=== PATIENT | male | born 1935 | race Caucasian/White ===

== ENCOUNTER → 2017-11-02 08:13 | Outpatient (CLI) | payer MEDICARE, SELFPAY ==
--- NOTE | 2017-11-02 08:19 | BD_ITS ---
STUDY: DUAL ENERGY X-RAY ABSORPTIOMETRY / DXA REASON FOR EXAM: Male, 81 years old. Loss of height. TECHNIQUE: Bone Mineral Density (BMD) measurements of lumbar spine and bilateral hips were obtained. COMPARISON: None. FINDINGS: Lumbar Spine (L1-L4): g/cm2 (1.172) / T-score (-0.6) / Z-score (0.1) Findings are suggestive of normal bone density with a low fracture risk. Left Femur Total: g/cm2 (0.878) / T-score (-1.5) / Z-score (-0.4) Left Femoral Neck: g/cm2 (0.708) / T-score (-2.8) / Z-score (-1.2) Right Femur Total: g/cm2 (0.908) / T-score (-1.3) / Z-score (-0.2) Right Femoral Neck: g/cm2 (0.745) / T-score (-2.5) / Z-score (-1.0) BD/Dexa Bone Density Study IMPRESSION: The patient is considered osteoporotic as outlined below according to World John Organization (WHO) criteria with a high fracture risk. Reference Information: The T-score is the number of standard deviations above or below the standard which is normal for young adults at their peak bone mineral density. The World Health Organization (WHO) interprets the T-scores as follows: Above -1 Normal bone density Between -1 and -2.5 Osteopenia Equal to / or below -2.5 Osteoporosis As a practical clinical guideline, osteopenia may be graded as follows: Mild -1 through -1.5 Moderate -1.6 through -2.0 Severe -2.1 through -2.4 The Z-score is the number of standard deviations above or below age-matched controls. A Z-score of less than -1.5 would be considered abnormal. References: 1. NIH Osteoporosis and Related Bone Diseases http://www.osteo.org 2. International Society for Clinical Densitometry http://www.iscd.org 3. National Osteoporosis Foundation http://www.nof.org Electronically Signed: Cornelius Evans MD at 12:46 EDT Tel [phone], Service support ,
== END ==
PROVIDERS: Family Provider Family Medicine; PCP Family Medicine; Visit Provider Family Medicine
DX: R93.7 Abnormal findings on diagnostic imaging of other parts of musculoskeletal system (principal); M81.0 Age-related osteoporosis without current pathological fracture
CPT/HCPCS: 77080

== ENCOUNTER 2017-11-21 10:26 | Day surgery (SDC) | payer MEDICARE, SELFPAY ==
[2017-11-21] VITALS (10 sets, daily range): BP systolic 104–160; BP diastolic 57–104; PULSE 57–68; RESP 16–18; TEMP 36.1–36.4; O2SAT 92–99; BMI 29.5
--- NOTE | 2017-11-21 09:10 | PCM.OPRPT ---
Problem List (1) Screening for intestinal cancer Status: Acute Report of Operation Date of Procedure: 11/21/17 Pre-Operative Diagnosis: Screening for intestinal cancer Post-Operative Diagnosis: Small sessile polyp of the ascending colon. Sigmoid diverticulosis Surgery/Procedure Performed:: Colonoscopy with cold forcep biopsy Description of Surgical Findings:: Timeout and informed consent was obtained. 81-year-old gent was taken to the endoscopy suite. He was placed in a left lateral decubitus position. Throughout the procedure he received total 100 mg Demerol and 4 mg of Versed as intravenous sedation. Digital rectal exam demonstrated mild grade 1 to grade 2 internal and external hemorrhoids. 2+ with prostate. Flexible colonoscope was in the rectum advanced with tortuous sigmoid colon. The scope was advanced through the transverse colon. Transabdominal pressure and placing the patient supine and then back and left loud skin position was required to get the scope to go to the cecum. The cecum ileocecal valve however was achieved. Bowel prep was good there was liquid stool that could be aspirated. A diminutive sessile polyp of the mid ascending colon was identified. This was approximately 5 mm. Cold forceps were used to sample and eradicate this lesion. Hemostasis was intact. The scope was further withdrawn to the ascending transverse descending and sigmoid colon. Sigmoid diverticulosis identified. No mass lesions. The scope was withdrawn to the rectum retroflex the anorectal verge inspected. Hemorrhoidal changes noted. No active bleeding. Excess fluid and air was aspirated free the procedure was completed with the patient tolerating it well. Impression Diminutive sessile polyp of the ascending colon with pathology pending. Sigmoid diverticulosis. The patient has not had a previous colonoscopy. Next colonoscopy based upon pathology anticipating [address] SALLY Hanna Scope was inserted at 0846. The cecum was reached at 0858. The procedure was completed at 0904. Mitchel Casarez M.D., F.A.C.S. Type of Anesthesia:: IV Sedation
--- NOTE | 2017-11-21 09:45 | COLBX_PTH ---
PATIENT: ALLISON SULTANA LOC: [facility] U#:[id number] AGE/SX: 81/M ROOM: RE11/21/[address]: Dr. Mitchel Casarez MD : [id number] BED: DIS: 11/21/2017 SPEC #: [id number] RECD: 11/21/17 10:34 STATUS: ILAN JORJE #: [id number] MARTÍNEZ: 11/21/17 09:[address]: Mitchel Casarez DEPT: SURGICAL PATHOLOGY RECD BY: Samy Brewer ENTERED: 11/21/17 12:08 SP TYPE: COLON BX OT DR: Dr. Tariq Hanna MD Tissues: Ascending colon Procedures: Surgery Specimen Level IV HEADER OPERATION: Colonoscopy PRE-OP DIAGNOSIS: Screening TISSUE SUBMITTED: Biopsy polyp ascending colon MICROSCOPIC DIAGNOSIS Polyp ascending colon, biopsy: Fragments of colonic mucosa, no pathologic diagnosis. SJ:jerry 11/22/17 MICROSCOPIC DESCRIPTION Slides are reviewed. GROSS DESCRIPTION Received in fixative is one container labeled with the patient's name and designated biopsy polyp ascending colon. The specimen consists of multiple irregular fragments of light chowdary soft tissue that in aggregate measure 1 x 0.3 x 0.1 cm. The specimen is totally submitted in one cassette. / SJ:jerry 11/21/17 TC:4 CPT: 03236
== END 2017-11-21 10:27 | disposition home or self-care (01) ==
LOC: EN 10:27
PROVIDERS: Family Provider Family Medicine; PCP Family Medicine; Visit Provider Surgery
PROC: 0DJD8ZZ Inspection of Lower Intestinal Tract, Via Natural or Artificial Opening Endoscopic (ICD-10-PCS; CPT 45378; principal; 2017-11-21 09:40)
DX: Z12.11 Encounter for screening for malignant neoplasm of colon (principal); K63.5 Polyp of colon; K57.30 Diverticulosis of large intestine without perforation or abscess without bleeding; K64.4 Residual hemorrhoidal skin tags; K64.8 Other hemorrhoids; R10.33 Periumbilical pain; K43.2 Incisional hernia without obstruction or gangrene; Z87.442 Personal history of urinary calculi; Z87.891 Personal history of nicotine dependence; Z90.49 Acquired absence of other specified parts of digestive tract
CPT/HCPCS: 45380; 88305; 99152; 99153

== ENCOUNTER 2018-02-01 16:44 | Observation (INO) | payer MEDICARE, SELFPAY ==
--- NOTE | 2018-01-26 09:48 | EKG12_ITS ---
Test Reason : PRE OP Blood Pressure : / mmHG Vent. Rate : 051 BPM Atrial Rate : 051 BPM P-R Int : 192 ms QRS Dur : 084 ms QT Int : 484 ms P-R-T Axes : 029 -04 005 degrees QTc Int : 446 ms Sinus bradycardia Moderate voltage criteria for LVH, may be normal variant Borderline ECG Confirmed by ROWDY FIERRO, FREDI ([id number]), food editor MARY ADAME ([id number]) on 01/29/2018 2:22:12 PM Referred By: Mitchel Casarez Confirmed By:FREDI RENO MD
[2018-01-26 10:36] LABS: Hematocrit 45.4 % (40-54); Hemoglobin 15.2 g/dl (13.0-16.5); Mean Corp Hgb Conc 33.5 g/gl (32-36); Mean Corpuscular Hgb 33.5 pg (27.0-32.0); Mean Platelet Vol. 10.1 fl (6.2-12.0); Platelet Count 178 K/mm3 (150-450); RBC Distribution Width CV 12.2 % (11.6-14.6); RBC Distribution Width SD 44.5 fl (35.1-43.9); Red Blood Count 4.54 M/mm3 (4.6-6.2); White Blood Count 6.1 K/mm3 (4.4-11.0)
[2018-01-26 10:37] LABS: Scan Indicated on CBC? Y/N NO
[2018-01-26 11:22] LABS: Anion Gap 6 (5-15); BUN 19 mg/dL (7-18); BUN/Creat Ratio 16.7 RATIO (10-20); Calcium,Total 8.4 mg/dL (8.5-10.1); Chloride 108 mmol/L (98-107); Creatinine, Serum 1.14 mg/dL (0.70-1.30); EST Glomerular Filtration Rate 66 mL/min (>60); Est Glom Filt Rate - Afr Amer 80 mL/min (>60); Glucose 90 mg/dL (74-106); Potassium 4.2 mmol/L (3.5-5.1); Sodium Level 140 mmol/L (136-145)
[2018-02-01] VITALS (9 sets, daily range): BP systolic 146–168; BP diastolic 78–96; PULSE 50–71; RESP 16–18; TEMP 36.2–36.6; O2SAT 94–100; BMI 29.5
[2018-02-01] MEDS: Cefazolin 2 GM in 0.9% Normal Saline 100 ML IV (15:14)
--- NOTE | 2018-02-01 15:18 | DCINST_ITS ---
<Mitchel Casarez - Last Filed: 02/02/18 06:05> Discharge Diet: Light diet - advance as tolerated - if you have questions about your diet instructions, please talk to you doctor. Discharge Activity: May Not Drive - for 1 week or while taking narcotic pain medicine. May shower in (days): 1 Lifting Restrictions: 10 pounds Call your doctor if your incision/area has: Continuous Slow Oozing, Sudden Increased Bleeding, Increased Pain/ Swelling, Increased Redness, Foul Smelling Discharge Call your doctor if you observe: Fever of 101 or Higher Suture Line Care: Avoid Pulling/Pushing, Avoid Pinching/Bending Additional Dressing/Incision Instructions:: Change or remove dressing in 4 days. Leave steri-strips in place for 1 week. Allergies/Adverse Reactions: Allergies latex Adverse Reaction (Mild, Verified 02/01/18 19:46) Other stays he is okay if its left on for very long Medications to take at Discharge Amlodipine [Norvasc] 5 mg PO DAILY #90 tablet 02/04/18 The following prescriptions were given: Amlodipine [Norvasc] 5 mg PO DAILY #90 tablet Primary Care Physician: Tariq Hanna MD [Primary Care Provider] - Test Results: Test results from this visit will be discussed in further detail at your follow- up appointment, if applicable. Please Follow Up With: Mitchel Casarez MD - [phone] When: Call to make an appointment to be seen in about 2 weeks. <Dayanna Ramos - Last Filed: 02/04/18 08:43> Test Results: Test results from this visit will be discussed in further detail at your follow- up appointment, if applicable. Proposed Discharge Date: 02/04/18
[2018-02-01] MEDS: BUPIVACAINE LIPOSOME/PF 20 ML VIAL OPERA.SITE (16:28)
--- NOTE | 2018-02-01 16:43 | OP.PCM_ITS ---
Problem List (1) Recurrent ventral incisional hernia Status: Acute Report of Operation Date of Procedure: 02/01/18 Pre-Operative Diagnosis: Recurrent ventral incisional hernia Post-Operative Diagnosis: Recurrent ventral incisional hernias x2 Surgery/Procedure Performed:: Open with conversion to laparoscopic ventral incisional herniorrhaphies Description of Surgical Findings:: Timeout and informed consent was obtained. 82-year-old gent was taken the operating placement table underwent general tracheal intubation anesthesia. Ancef 2 g given intravenous preoperatively. The abdomen was sterilely prepped draped. Ioban draping was used as well. A transverse incision made superior to the umbilicus at the site of the anticipated defect. Sharp dissection carried down through subcutaneous. At that point I dissected inferiorly to the umbilical site at the recurrent hernia there. I gained access through that sac circumferentially dissected free and then it became apparent that was omentum adherent to the anterior abdominal wall. Upon [place] patient there was a separate defect that was superiorly placed to my incision. So I then placed a balloon Lala catheter. Insufflated the abdomen with CO2 to a pressure of 10 mmHg pressure. Identified adhesions of omentum to the anterior abdominal wall. There was a recurrent ventral incisional hernia at the umbilicus. There was a additional ventral incisional hernia approximately 6 cm cephalad to that hernia. I was able to then use a hot scissors or hook cautery as well as Hem-o-renetta clips for hemostasis and I transected the greater omentum off the anterior abdominal wall. I then selected ventral light ST mesh. Reference #[id number]. Lot number [employer] Q's [id number]. Expiry date 09/19/2019. It was approximately 25 cm by I put 4 corner sutures of 2-0 Prolene. Curled the mesh placed it within the abdomen. At this point I had already placed 2 5 mm ports in the left midabdomen and to family reports in the right mid abdomen. I unfurled the mesh. I used a grainy needle and 11 blade to make stab incisions I parachuted the mesh up to the abdominal wall. I then used secure strap at the periphery at 2 cm intervals. Secure strap device lot number [id number]. Expiry date July 2019. Soup to similar devices I then further secured the midportion of the mesh to inhibit seroma formation. Excellent positioning and securement was achieved. I then wetted the mesh with saline. I sure that the greater omentum was overlying the small bowel. There was excellent positioning coverage of the mesh excellent coverage of the defect area. Hemostasis was intact. Then under laparoscopic visualization I performed a tap block bilaterally. Under left scopic visualization I took Exparel 20 cc diluted with 60 cc of saline and performed a tap block bilaterally using 10 cc syringe and 22-gauge needle. The bulb was distention of the oblique muscles nicely identified. Having now achieved this I removed the ports. Allow the abdomen to deflate of the CO2. Skin edges approximated with interrupted and running septic or 4-0 Monocryl. Steri-Strip Telfa OpSite dressings applied. A pressure dressing was applied to the mid. All of the 30 cc of 0.5% Marcaine was used as well. Sponge instrument and needle counts were reported the surgeon be correct. Blood loss was minimal. The patient was taken to the recovery room in condition without apparent complication Mitchel Casarez M.D., F.A.C.S. Type of Anesthesia:: General Anesthesiologist: Rupesh Richardson
[2018-02-01] MEDS: Bupivacaine Mpf 0.5% 30 ML VIAL (16:47)
[2018-02-01] MEDS: Morphine 2 MG/ML Syringe IV ×3 (18:42→22:45)
[2018-02-01] MEDS: Ondansetron 4 MG/2 ML Vial IV (20:29)
[2018-02-01] MEDS: 0.9% NaCl Peripheral Flush Adult/Peds IV (22:44)
[2018-02-01] MEDS: Acetaminophen 325 MG Tablet 650 MG PO (22:44)
--- NOTE | 2018-02-01 22:57 | NURSING ---
Pt up to chair with 2 assist. Legs are elevated with scd's on. K-pad applied to abdomen. Pt using incentive spirometer. Medicated for pain.
[2018-02-02 01:57] VITALS: BP 160/99; PULSE 57; RESP 16; TEMP 36.5; O2SAT 99
[2018-02-02] MEDS: 0.9% NaCl Peripheral Flush Adult/Peds IV ×4 (02:12→14:40)
[2018-02-02] MEDS: Morphine 2 MG/ML Syringe IV ×4 (02:12→21:39)
[2018-02-02] MEDS: Lactated Ringers 1,000 ML 50 ML IV (02:16)
--- NOTE | 2018-02-02 02:18 | NURSING ---
pt returned to bed with 2 staff assist
[2018-02-02] MEDS: Ondansetron 4 MG/2 ML Vial IV (05:00)
[2018-02-02] MEDS: Enoxaparin 40 MG/0.4 ML Syringe SC (05:12)
--- NOTE | 2018-02-02 06:01 | PCM.PN.SRG ---
Subjective: Pt notes quite painful when meds wear off--this is despite the KIERA block performed Has been out of bed in chair No nausea no flatus - Physical Exam General: Alert, Oriented x3, Cooperative, No apparent distress Lungs: Clear to auscultation Cardiovascular: Regular rate, Regular Rhythm Abdomen: Soft, Hypoactive Bowel Sounds, Distended Vital Signs Temp Pulse Resp BP Pulse Ox 97.7 F L 57 L 16 160/99 H 99 02/02/18 01:57 02/02/18 01:57 02/02/18 01:57 02/02/18 01:57 02/02/18 01:57 Oxygen Flow Rate (L/min) 1.5 Oxygen Delivery Method Nasal Cannula Weight: 200 lb 6.403 oz Body Mass Index (BMI) 29.5 Intake and Output for Last 24 Hours 01/31/18 02/01/18 02/02/18 23:59 23:59 23:59 Intake Total 1400 / 1400 530 / 530 Output Total 600 / 600 Balance 1400 / 1400 -70 / -70 Medical Necessity - Tobacco Use Smoking Status: Never smoker Assessment/Plan All Active Problems (Last Reviewed 01/11/18 @ 09:04 by Kaya Sandoval) Screening for intestinal cancer (Acute) Recurrent ventral incisional hernia (Acute) Continue to mobilize pt Start clears
[2018-02-02] MEDS: Ketorolac 15 MG/ML Vial IV (06:19)
[2018-02-02] MEDS: Polyethylene Glycol 3350 17 GM PACKET 34 GM PO (06:19)
[2018-02-02 06:34] VITALS: O2SAT 94
[2018-02-02 07:23] VITALS: BP 152/84; PULSE 61
[2018-02-02 08:34] VITALS: BP 147/84; PULSE 56; RESP 16; TEMP 36.3; O2SAT 96
[2018-02-02] MEDS: Acetaminophen 325 MG Tablet 650 MG PO (08:41)
[2018-02-02] MEDS: proMETHazine 25 MG Suppos. RECTAL (09:32)
[2018-02-02] MEDS: Morphine 4 MG/ML Syringe IV ×2 (10:50→14:40)
[2018-02-02] MEDS: LORazepam 0.5 MG Tablet PO (12:07)
--- NOTE | 2018-02-02 13:37 | CASEMGMT ---
RN CM Face to Face with patient for initial transition planning/care coordination assessment. RN CM introduced self and role at [facility]. Patient sitting in chair, alert and oriented, daughters at bedside. Patient willing to participate in assessment and is able to answer all questions appropriately. Care providers, pharmacy, and demographics verified. Patient lives alone in 1 story home. Patient is independent at home and drives self. Patient has daughter that will be staying with patient for a few days. Patient wishes to discharge home, denies need for home health at this time. Patient states he has no further needs or concerns at this time. CM to follow for discharge planning needs that may arise. Disposition Plan: Patient to discharge home with family support and follow-up plans in place. Sara LAND, RN, CM
[2018-02-02 14:38] VITALS: BP 129/74; PULSE 66; RESP 16; TEMP 36.6; O2SAT 98
--- NOTE | 2018-02-02 15:32 | NURSING ---
Pt. ambulating in hallway with SBA and tolerating well.
--- NOTE | 2018-02-02 16:45 | PCM.PN.BLA ---
Progress Note No flatus but otherwise doing ok Sitting in chair Nausea has resolved Ongoing care
[2018-02-02] MEDS: Bisacodyl 10 MG Suppository RECTAL (17:32)
[2018-02-02 21:26] VITALS: BP 186/90; PULSE 68; RESP 16; TEMP 37.3; O2SAT 94
[2018-02-03] VITALS (10 sets, daily range): BP systolic 151–184; BP diastolic 78–110; PULSE 60–81; RESP 16; TEMP 36.6–36.9; O2SAT 95–97
[2018-02-03] MEDS: Morphine 2 MG/ML Syringe IV ×2 (02:58→05:24)
[2018-02-03] MEDS: hydrALAZINE 20 MG/ML Vial 5 MG IV (04:13)
[2018-02-03] MEDS: Enoxaparin 40 MG/0.4 ML Syringe SC (06:52)
--- NOTE | 2018-02-03 07:13 | PCM.PN.SRG ---
Subjective: Pt c/o pain out of proportion to anticipated for procedure HTN early a.m. requiring IV hydralazine Pt having some flatus but wanting the gas cramps to be treated with IV morphine No nausea - Physical Exam General: Alert, Oriented x3, - - moves very little and shows painful response Lungs: - - dimininshed in bases Abdomen: Bowel Sounds Present, Soft, - - tape burn right mid abdomen Extraordinarily tender to minimal light touch to abdomen Dressings otherwise very clean and dry Vital Signs Temp Pulse Resp BP Pulse Ox 98.4 F 81 16 152/86 H 97 02/03/18 02:45 02/03/18 04:13 02/03/18 02:45 02/03/18 06:24 02/03/18 02:45 Oxygen Flow Rate (L/min) 2 Oxygen Delivery Method Nasal Cannula Weight: 200 lb 6.403 oz Body Mass Index (BMI) 29.5 Intake and Output for Last 24 Hours 02/01/18 02/02/18 02/03/18 23:59 23:59 23:59 Intake Total 1400 / 1400 1788 / 1788 398 / 398 Output Total 1025 / 1025 600 / 600 Balance 1400 / 1400 763 / 763 -202 / -202 Medical Necessity - Tobacco Use Smoking Status: Never smoker Assessment/Plan All Active Problems (Last Reviewed 01/11/18 @ 09:04 by Kaya Sandoval) Screening for intestinal cancer (Acute) Recurrent ventral incisional hernia (Acute) Pt took only one dose of ativan yesterday as it was declined by family as pt not anxious He is clearly having abdominal wall pain from the repair. The KIERA block does not appear to have provided any benefit In an attempt to move away from morphine I will have a dose of IV toradol and IV ativan (muscle pain/spasm) given Will try 24 hours of a routine ibuprofen dosing Pt vigorously encouraged to mobilize and work his IS Will advance to fulls Will consult hospitalist to assist with chronic and acute HTN
[2018-02-03] MEDS: Ketorolac 15 MG/ML Vial IV (08:14)
[2018-02-03] MEDS: LORazepam 2 MG/ML Syringe 0.5 MG IV (08:14)
[2018-02-03] MEDS: Lactated Ringers 1,000 ML 30 ML IV (08:15)
[2018-02-03] MEDS: Pantoprazole Sodium 20 MG Tablet PO (08:32)
--- NOTE | 2018-02-03 10:02 | PCM.PN.HOSP ---
Subjective: Patient is an 82-year-old male who was admitted on account of recurrent ventral incisional hernia who underwent Open with conversion to laparoscopic ventral incisional herniorrhaphies 02/01/[address] Mitchel Casarez. Hospitalist service was consulted on account of patient having markedly elevated systolic blood pressure of greater than 180. Objective: GENERAL: cooperative HEENT: Atraumatic; moist oral mucosa EYES; Anicteric, Normal Conjunctiva NECK; supple, normal thyroid, no distended JVD. RESPIRATORY: Diminished to auscultation bilaterally, CARDIOVASCULAR: Regular S1 S2, no audible murmurs GI: soft, non-tender, normoactive bowel sounds, : No Renal angle tenderness; EXTREMITIES: No edema, no clubbing, no cyanosis. MUSCULOSKELETAL: No Joint Tenderness; no muscle waisting NEURO: Awake; no lateralizing signs. SKIN: No Rash PSYCH; Normal affect Vitals/I&O's: Vital Signs Temp Pulse Resp BP Pulse Ox 98.2 F 73 16 163/96 H 95 02/03/18 08:16 02/03/18 08:16 02/03/18 08:16 02/03/18 08:16 02/03/18 08:16 Oxygen Flow Rate (L/min) 2 Oxygen Delivery Method Room Air Weight: 90.9 kg Body Mass Index (BMI) 29.5 Intake and Output for Last 24 Hours 02/01/18 02/02/18 02/03/18 23:59 23:59 23:59 Intake Total 1400 / 1400 1788 / 1788 798 / 798 Output Total 1025 / 1025 600 / 600 Balance 1400 / 1400 763 / 763 198 / 198 Current Medications Acetaminophen (Tylenol) 650 mg PO Q6H PRN PRN PRN Reason: pain Last Admin: 02/02/18 08:41 Dose: 650 mg Hydrocodone Bitart/Acetaminophen (Steward 5mg-325mg) 1 - 2 tablet PO Q4H PRN PRN PRN Reason: PAIN Enoxaparin Sodium (Lovenox) 40 mg SC DAILY@0600 [facility] Last Admin: 02/03/18 06:52 Dose: 40 mg Lactated Ringer's () 1,000 mls @ 30 mls/hr IV .[id number] [facility] Last Admin: 02/03/18 08:15 Dose: 30 mls/hr Ibuprofen (Motrin) 400 mg PO Q6 [facility] Stop: 02/04/18 06:01 Lorazepam (Ativan) 0.5 mg PO Q8H PRN PRN PRN Reason: ANXIETY Last Admin: 02/02/18 12:07 Dose: 0.5 mg Morphine Sulfate () 2 - 4 mg IV Q1H PRN PRN PRN Reason: PAIN Last Admin: 02/03/18 05:24 Dose: 2 mg Morphine Sulfate () 2 - 4 mg IV Q1H PRN PRN PRN Reason: PAIN Last Admin: 02/02/18 14:40 Dose: 4 mg Neomycin/Polymyxin/Bacitracin (Neosporin) 1 applic TOPICAL BID [facility]; Protocol Ondansetron HCl (Zofran) 4 mg IV Q8H PRN PRN PRN Reason: Nausea Last Admin: 02/02/18 05:00 Dose: 4 mg Pantoprazole Sodium (Protonix) 20 mg PO DAILY [facility] Last Admin: 02/03/18 08:32 Dose: 20 mg Promethazine HCl (Phenergan Suppository) 25 mg RECTAL Q4H PRN PRN PRN Reason: NAUSEA/VOMITING Last Admin: 02/02/18 09:32 Dose: 25 mg Sodium Chloride () 5 - 30 ml IV UD PRN PRN Reason: SALINE FLUSH Last Admin: 02/02/18 14:40 Dose: 10 ml Medical Necessity - Tobacco Use Smoking Status: Never smoker Assessment/Plan All Active Problems (Last Reviewed 01/11/18 @ 09:04 by Kaya Sandoval) Screening for intestinal cancer (Acute) Recurrent ventral incisional hernia (Acute) Patient is an 82-year-old male who was admitted on account of recurrent ventral incisional hernia who underwent Open with conversion to laparoscopic ventral incisional herniorrhaphies 02/01/[address] Mitchel Casarez. Hospitalist service was consulted on account of patient having markedly elevated systolic blood pressure of greater than 180. 1. Acute hypertensive crisis: This was possibly prepped stated by patient having significant postoperative pain patient was started on as needed hydralazine as well as p.o. scheduled amlodipine 2. Status post to laparoscopic ventral incisional herniorrhaphies 02/01/[address] Mitchel Casarez on account of recurrent ventral incisional hernia postoperative management deferred to Dr. Mitchel Casarez 3. History of renal calculi 4. Previous history of tobacco use 5. DVT prophylaxis SC Lovenox Active Medications Acetaminophen (Tylenol) 650 mg PO Q6H PRN PRN PRN Reason: pain Last Admin: 02/02/18 08:41 Dose: 650 mg Hydrocodone Bitart/Acetaminophen (Steward 5mg-325mg) 1 - 2 tablet PO Q4H PRN PRN PRN Reason: PAIN Enoxaparin Sodium (Lovenox) 40 mg SC DAILY@0600 [facility] Last Admin: 02/03/18 06:52 Dose: 40 mg Lactated Ringer's () 1,000 mls @ 30 mls/hr IV .[id number] [facility] Last Admin: 02/03/18 08:15 Dose: 30 mls/hr Ibuprofen (Motrin) 400 mg PO Q6 [facility] Stop: 02/04/18 06:01 Lorazepam (Ativan) 0.5 mg PO Q8H PRN PRN PRN Reason: ANXIETY Last Admin: 02/02/18 12:07 Dose: 0.5 mg Morphine Sulfate () 2 - 4 mg IV Q1H PRN PRN PRN Reason: PAIN Last Admin: 02/03/18 05:24 Dose: 2 mg Morphine Sulfate () 2 - 4 mg IV Q1H PRN PRN PRN Reason: PAIN Last Admin: 02/02/18 14:40 Dose: 4 mg Neomycin/Polymyxin/Bacitracin (Neosporin) 1 applic TOPICAL BID [facility]; Protocol Ondansetron HCl (Zofran) 4 mg IV Q8H PRN PRN PRN Reason: Nausea Last Admin: 02/02/18 05:00 Dose: 4 mg Pantoprazole Sodium (Protonix) 20 mg PO DAILY [facility] Last Admin: 02/03/18 08:32 Dose: 20 mg Promethazine HCl (Phenergan Suppository) 25 mg RECTAL Q4H PRN PRN PRN Reason: NAUSEA/VOMITING Last Admin: 02/02/18 09:32 Dose: 25 mg Sodium Chloride () 5 - 30 ml IV UD PRN PRN Reason: SALINE FLUSH Last Admin: 02/02/18 14:40 Dose: 10 ml Code Visit Inpatient E&M: [id number] [place] [id number]
[2018-02-03 10:14] LABS: Hematocrit 42.2 % (40-54); Hemoglobin 13.8 g/dl (13.0-16.5); Mean Corp Hgb Conc 32.7 g/gl (32-36); Mean Corpuscular Hgb 32.9 pg (27.0-32.0); Mean Corpuscular Volume 100.7 fL (80-94); Mean Platelet Vol. 9.9 fl (6.2-12.0); Platelet Count 146 K/mm3 (150-450); RBC Distribution Width CV 12.3 % (11.6-14.6); RBC Distribution Width SD 45.4 fl (35.1-43.9); Red Blood Count 4.19 M/mm3 (4.6-6.2); White Blood Count 8.1 K/mm3 (4.4-11.0)
[2018-02-03 10:16] LABS: Scan Indicated on CBC? Y/N NO
[2018-02-03 10:38] LABS: Anion Gap 4 (5-15); BUN 20 mg/dL (7-18); BUN/Creat Ratio 14.8 RATIO (10-20); Calcium,Total 8.2 mg/dL (8.5-10.1); Chloride 106 mmol/L (98-107); Creatinine, Serum 1.35 mg/dL (0.70-1.30); EST Glomerular Filtration Rate 54 mL/min (>60); Est Glom Filt Rate - Afr Amer 65 mL/min (>60); Estimated Creatinine Clearance 43.64 ml/min; Glucose 101 mg/dL (74-106); Magnesium 1.9 mg/dL (1.6-2.6); Potassium 4.2 mmol/L (3.5-5.1); Sodium Level 138 mmol/L (136-145)
[2018-02-03] MEDS: Ibuprofen 400 MG Tablet PO ×3 (11:05→23:35)
[2018-02-03] MEDS: HYDROcodone Bitartrate/Apap 5/325 Tablet PO ×3 (11:05→20:16)
[2018-02-03] MEDS: amLODIPine 5 MG Tablet PO (11:06)
[2018-02-03] MEDS: Neomycin/Bacitracin/Polymyxin Ointment 1 APPLIC TOPICAL ×2 (11:07→22:51)
[2018-02-03] MEDS: hydrALAZINE 20 MG/ML Vial 10 MG IV (23:06)
[2018-02-04 01:42] VITALS: BP 136/73; PULSE 69; RESP 16; TEMP 36.6; O2SAT 92
[2018-02-04] MEDS: Ibuprofen 400 MG Tablet PO (05:12)
[2018-02-04] MEDS: Enoxaparin 40 MG/0.4 ML Syringe SC (05:12)
[2018-02-04 05:46] LABS: Hematocrit 40.3 % (40-54); Hemoglobin 13.5 g/dl (13.0-16.5); Mean Corp Hgb Conc 33.5 g/gl (32-36); Mean Corpuscular Hgb 33.8 pg (27.0-32.0); Mean Corpuscular Volume 100.8 fL (80-94); Platelet Count 152 K/mm3 (150-450); RBC Distribution Width CV 11.9 % (11.6-14.6); RBC Distribution Width SD 43.1 fl (35.1-43.9); White Blood Count 6.5 K/mm3 (4.4-11.0)
[2018-02-04 06:06] LABS: Anion Gap 6 (5-15); BUN 17 mg/dL (7-18); BUN/Creat Ratio 15.2 RATIO (10-20); Calcium,Total 8.3 mg/dL (8.5-10.1); Chloride 107 mmol/L (98-107); Creatinine, Serum 1.12 mg/dL (0.70-1.30); EST Glomerular Filtration Rate 67 mL/min (>60); Est Glom Filt Rate - Afr Amer 81 mL/min (>60); Glucose 98 mg/dL (74-106); Sodium Level 141 mmol/L (136-145)
[2018-02-04 06:08] LABS: Scan Indicated on CBC? Y/N NO
[2018-02-04 07:38] VITALS: BP 145/81; PULSE 65; RESP 16; TEMP 36.7; O2SAT 95
--- NOTE | 2018-02-04 07:52 | PN_ITS ---
Subjective: Pt seen blood pressure control improving with initiation of amlodipine. Objective: GENERAL: cooperative HEENT: Atraumatic; moist oral mucosa EYES; Anicteric, Normal Conjunctiva NECK; supple, normal thyroid, no distended JVD. RESPIRATORY: Diminished to auscultation bilaterally, CARDIOVASCULAR: Regular S1 S2, no audible murmurs GI: soft, non-tender, normoactive bowel sounds, : No Renal angle tenderness; EXTREMITIES: No edema, no clubbing, no cyanosis. MUSCULOSKELETAL: No Joint Tenderness; no muscle waisting NEURO: Awake; no lateralizing signs. SKIN: No Rash PSYCH; Normal affect Vitals/I&O's: Vital Signs Temp Pulse Resp BP Pulse Ox 98.1 F 65 16 145/81 H 95 02/04/18 07:38 02/04/18 07:38 02/04/18 07:38 02/04/18 07:38 02/04/18 07:38 Oxygen Flow Rate (L/min) 2 Oxygen Delivery Method Room Air Weight: 90.9 kg Body Mass Index (BMI) 29.5 Intake and Output for Last 24 Hours 02/02/18 02/03/18 02/04/18 23:59 23:59 23:59 Intake Total 1788 / 1788 2654 / 2654 481 / 481 Output Total 1025 / 1025 600 / 600 Balance 763 / 763 2054 / 2054 481 / 481 Laboratory Results 02/03/18 10:06: WBC 8.1, RBC 4.19 L, Hgb 13.8, Hct 42.2, MCV 100.7 H, MCH 32.9 H , MCHC 32.7, RDW 12.3, RDW Differential 45.4 H, Plt Count 146 L, MPV 9.9 02/03/18 10:06: Sodium 138, Potassium 4.2, Chloride 106, Carbon Dioxide 28.0, Anion Gap 4 L, BUN 20 H, Creatinine 1.35 H, Estim Creat Clear Calc 43.64, Est GFR (MDRD) Af Amer 65, Est GFR (MDRD) Non-Af 54 L, BUN/Creatinine Ratio 14.8, Glucose 101, Calcium 8.2 L, Magnesium 1.9 02/04/18 05:35: WBC 6.5, RBC 4.00 L, Hgb 13.5, Hct 40.3, MCV 100.8 H, MCH 33.8 H , MCHC 33.5, RDW 11.9, RDW Differential 43.1, Plt Count 152, MPV 10.0 02/04/18 05:35: Sodium 141, Potassium 4.0, Chloride 107, Carbon Dioxide 28.0, Anion Gap 6, BUN 17, Creatinine 1.12, Estim Creat Clear Calc 52.60, Est GFR (MDRD) Af Amer 81, Est GFR (MDRD) Non-Af 67, BUN/Creatinine Ratio 15.2, Glucose 98, Calcium 8.3 L Current Medications Acetaminophen (Tylenol) 650 mg PO Q6H PRN PRN PRN Reason: pain Last Admin: 02/02/18 08:41 Dose: 650 mg Hydrocodone Bitart/Acetaminophen (Clio 5mg-325mg) 1 - 2 tablet PO Q4H PRN PRN PRN Reason: PAIN Last Admin: 02/03/18 20:16 Dose: 1 tablet Amlodipine Besylate (Norvasc) 5 mg PO DAILY [facility] Last Admin: 02/03/18 11:06 Dose: 5 mg Enoxaparin Sodium (Lovenox) 40 mg SC DAILY@0600 [facility] Last Admin: 02/04/18 05:12 Dose: 40 mg Hydralazine HCl (Apresoline Iv) 10 mg IV Q6H PRN PRN PRN Reason: BLOOD PRESSURE Last Admin: 02/03/18 23:06 Dose: 10 mg Lactated Ringer's () 1,000 mls @ 30 mls/hr IV .[id number] [facility] Last Admin: 02/03/18 08:15 Dose: 30 mls/hr Lorazepam (Ativan) 0.5 mg PO Q8H PRN PRN PRN Reason: ANXIETY Last Admin: 02/02/18 12:07 Dose: 0.5 mg Morphine Sulfate () 2 - 4 mg IV Q1H PRN PRN PRN Reason: PAIN Last Admin: 02/03/18 05:24 Dose: 2 mg Morphine Sulfate () 2 - 4 mg IV Q1H PRN PRN PRN Reason: PAIN Last Admin: 02/02/18 14:40 Dose: 4 mg Neomycin/Polymyxin/Bacitracin (Neosporin) 1 applic TOPICAL BID [facility]; Protocol Last Admin: 10/13/18 22:51 Dose: 1 applicatio Ondansetron HCl (Zofran) 4 mg IV Q8H PRN PRN PRN Reason: Nausea Last Admin: 02/02/18 05:00 Dose: 4 mg Pantoprazole Sodium (Protonix) 20 mg PO DAILY ZEKE Last Admin: 02/03/18 08:32 Dose: 20 mg Promethazine HCl (Phenergan Suppository) 25 mg RECTAL Q4H PRN PRN PRN Reason: NAUSEA/VOMITING Last Admin: 02/02/18 09:32 Dose: 25 mg Sodium Chloride () 5 - 30 ml IV UD PRN PRN Reason: SALINE FLUSH Last Admin: 02/02/18 14:40 Dose: 10 ml Medical Necessity - Tobacco Use Smoking Status: Never smoker Assessment/Plan All Active Problems (Last Reviewed 01/11/18 @ 09:04 by Kaya Sandoval) Screening for intestinal cancer (Acute) Recurrent ventral incisional hernia (Acute) Patient is an 82-year-old male who was admitted on account of recurrent ventral incisional hernia who underwent Open with conversion to laparoscopic ventral incisional herniorrhaphies 02/01/[address] Mitchel Casarez. Hospitalist service was consulted on account of patient having markedly elevated systolic blood pressure of greater than 180. 1. Acute hypertensive crisis: This was possibly prepped stated by patient having significant postoperative pain patient was started on as needed hydralazine as well as p.o. scheduled amlodipine. Prescription was written for amlodipine 5 mg on the day of discharge 2. Status post to laparoscopic ventral incisional herniorrhaphies 02/01/[address] Mitchel Casarez on account of recurrent ventral incisional hernia postoperative management deferred to Dr. Mitchel Casarez 3. History of renal calculi 4. Previous history of tobacco use 5. DVT prophylaxis SC Lovenox Code Visit Inpatient E&M: 04260 Subs Hosp L2
[2018-02-04] MEDS: Neomycin/Bacitracin/Polymyxin Ointment 1 APPLIC TOPICAL (07:54)
[2018-02-04] MEDS: Pantoprazole Sodium 20 MG Tablet PO (07:54)
[2018-02-04] MEDS: amLODIPine 5 MG Tablet PO (07:54)
--- NOTE | 2018-02-04 07:55 | PCM.PN.SRG ---
Subjective: Patient was ambulating yesterday, tolerated full liquids, pain is controlled with Parish and ibuprofen - Physical Exam General: Alert, Oriented x3, Cooperative, No apparent distress Lungs: Normal air movement Cardiovascular: Regular rate Abdomen: Soft, Distended - Mild, Tender - Near incisions, dressed clean dry and intact, couple areas of skin tears from the tape covered and treated with bacitracin Extremities: No clubbing, No cyanosis, No edema Vital Signs Temp Pulse Resp BP Pulse Ox 98.1 F 65 16 145/81 H 95 02/04/18 07:38 02/04/18 07:38 02/04/18 07:38 02/04/18 07:38 02/04/18 07:38 Oxygen Flow Rate (L/min) 2 Oxygen Delivery Method Room Air Weight: 200 lb 6.403 oz Body Mass Index (BMI) 29.5 Intake and Output for Last 24 Hours 02/02/18 02/03/18 02/04/18 23:59 23:59 23:59 Intake Total 1788 / 1788 2654 / 2654 481 / 481 Output Total 1025 / 1025 600 / 600 Balance 763 / 763 2054 / 2054 481 / 481 Laboratory Tests Past 24 Hrs 02/03/18 02/03/18 02/04/18 10:06 10:06 05:35 WBC 8.1 6.5 RBC 4.19 L 4.00 L Hgb 13.8 13.5 Hct 42.2 40.3 MCV 100.7 H 100.8 H MCH 32.9 H 33.8 H MCHC 32.7 33.5 RDW 12.3 11.9 RDW Differential 45.4 H 43.1 Plt Count 146 L 152 MPV 9.9 10.0 Sodium 138 Potassium 4.2 Chloride 106 Carbon Dioxide 28.0 Anion Gap 4 L BUN 20 H Creatinine 1.35 H Estim Creat Clear Calc 43.64 Est GFR (MDRD) Af Amer 65 Est GFR (MDRD) Non-Af 54 L BUN/Creatinine Ratio 14.8 Glucose 101 Calcium 8.2 L Magnesium 1.9 02/04/18 05:35 WBC RBC Hgb Hct MCV MCH MCHC RDW RDW Differential Plt Count MPV Sodium 141 Potassium 4.0 Chloride 107 Carbon Dioxide 28.0 Anion Gap 6 BUN 17 Creatinine 1.12 Estim Creat Clear Calc 52.60 Est GFR (MDRD) Af Amer 81 Est GFR (MDRD) Non-Af 67 BUN/Creatinine Ratio 15.2 Glucose 98 Calcium 8.3 L Magnesium Medical Necessity - Tobacco Use Smoking Status: Never smoker Assessment/Plan All Active Problems (Last Reviewed 01/11/18 @ 09:04 by Kaya Sandoval) Screening for intestinal cancer (Acute) Recurrent ventral incisional hernia (Acute) Patient is tolerating full liquids, ambulating [place], pain controlled with Parish and ibuprofen. DC home. Follow-up with Dr. Casarez in 2 weeks. Patient agreeable plan. Dayanna Ramos M.D. Pager: [phone] [facility] [address] [place] [address], [facility], [address] [place] [address] Office: [phone]
--- NOTE | 2018-02-04 08:34 | PCM.DC.SUM ---
Discharge Date and Diagnosis Date of Admission: 02/01/18 Date of Discharge: 02/04/18 - Primary Discharge Diagnosis recurrent incisional hernia repair x2 HTN Hospital Course and Treatment Hospitalist for HTN Operations: - - open converted to laparoscopic recurrent incisional hernia repair x 2 Summary of Care Provided: The patient is a 82 year old M admitted after open converted to laparoscopic recurrent incisional hernia repair x [address] Casarez 02/01/18. Pt was sebastian full liquids but still having issue with pain control and using IV morphine. Pt was able to have pain controlled with ibu and norco in a couple of days from surgery. Hospitalist was consulted for HTN and he was placed on amlopidine 5mg PO qday. Once pt pain was controlled he was ambulating well in the halls as well. Subjective: Pt sebastian Full liquids, + flatus, amb, pt started on amlodipine 5mg for HTN - Physical Exam General: Alert, Oriented x3, Cooperative, No apparent distress HEENT: Atraumatic Lungs: Normal air movement Cardiovascular: Regular rate Abdomen: Soft, Tender - near incisions, dressed c/d/i, no PS Extremities: No clubbing, No cyanosis, No edema Neurological: Cranial nerves II-XII grossly intact Psych/Mental Status: Normal Affect Vital Signs Temp Pulse Resp BP Pulse Ox 98.1 F 65 16 145/81 H 95 02/04/18 07:38 02/04/18 07:38 02/04/18 07:38 02/04/18 07:38 02/04/18 07:38 Oxygen Flow Rate (L/min) 2 Oxygen Delivery Method Room Air Weight: 200 lb 6.403 oz Body Mass Index (BMI) 29.5 Intake and Output for Last 24 Hours 02/02/18 02/03/18 02/04/18 23:59 23:59 23:59 Intake Total 1788 / 1788 2654 / 2654 481 / 481 Output Total 1025 / 1025 600 / 600 Balance 763 / 763 2054 / 2054 481 / 481 Laboratory Tests Past 24 Hrs 02/03/18 02/03/18 02/04/18 10:06 10:06 05:35 WBC 8.1 6.5 RBC 4.19 L 4.00 L Hgb 13.8 13.5 Hct 42.2 40.3 MCV 100.7 H 100.8 H MCH 32.9 H 33.8 H MCHC 32.7 33.5 RDW 12.3 11.9 RDW Differential 45.4 H 43.1 Plt Count 146 L 152 MPV 9.9 10.0 Sodium 138 Potassium 4.2 Chloride 106 Carbon Dioxide 28.0 Anion Gap 4 L BUN 20 H Creatinine 1.35 H Estim Creat Clear Calc 43.64 Est GFR (MDRD) Af Amer 65 Est GFR (MDRD) Non-Af 54 L BUN/Creatinine Ratio 14.8 Glucose 101 Calcium 8.2 L Magnesium 1.9 02/04/18 05:35 WBC RBC Hgb Hct MCV MCH MCHC RDW RDW Differential Plt Count MPV Sodium 141 Potassium 4.0 Chloride 107 Carbon Dioxide 28.0 Anion Gap 6 BUN 17 Creatinine 1.12 Estim Creat Clear Calc 52.60 Est GFR (MDRD) Af Amer 81 Est GFR (MDRD) Non-Af 67 BUN/Creatinine Ratio 15.2 Glucose 98 Calcium 8.3 L Magnesium Discharge Diet: Light diet - advance as tolerated - if you have questions about your diet instructions, please talk to you doctor. Discharge Activity: May Not Drive - for 1 week or while taking narcotic pain medicine. May shower in (days): 1 Call your doctor if your incision/area has: Continuous Slow Oozing, Sudden Increased Bleeding, Increased Pain/ Swelling, Increased Redness, Foul Smelling Discharge Call your doctor if you observe: Fever of 101 or Higher Suture Line Care: Avoid Pulling/Pushing, Avoid Pinching/Bending Additional Dressing/Incision Instructions:: Change or remove dressing in 4 days. Leave steri-strips in place for 1 week. Home Medications: Medications to take at Discharge Amlodipine [Norvasc] 5 mg PO DAILY #90 tablet 02/04/18 Following Prescrptions Were Given to Patient: Amlodipine [Norvasc] 5 mg PO DAILY #90 tablet Primary Care Physician: Tariq Hanna MD [Primary Care Provider] - Please Follow Up With: Mitchel Casarez MD - [phone] When: Call to make an appointment to be seen in about 2 weeks. Disposition: Home Minutes spent on discharge:: 15 Patient Condition:: Good Medical Necessity - Tobacco Use Smoking Status: Never smoker Meaningful Use Info Meaningful Use Diagnoses (Choose all that apply): None applicable
[2018-02-04] MEDS: HYDROcodone Bitartrate/Apap 5/325 Tablet PO (10:47)
[2018-02-04 14:00] VITALS: BP 150/90; PULSE 63; RESP 16; TEMP 36.6; O2SAT 100
== END 2018-02-04 14:26 | disposition home or self-care (01) ==
LOC: SDC 16:49
PROVIDERS: Internal Medicine; Admitting Provider Surgery; Family Provider Family Medicine; PCP Family Medicine; Referring Provider Surgery; Visit Provider Surgery
PROC: 0WQF4ZZ Repair Abdominal Wall, Percutaneous Endoscopic Approach (ICD-10-PCS; CPT 49565; principal; 2018-02-01 13:40)
DX: K43.2 Incisional hernia without obstruction or gangrene (principal); Z87.891 Personal history of nicotine dependence; I10 Essential (primary) hypertension; I16.9 Hypertensive crisis, unspecified
CPT/HCPCS: 49565; 49568; 36415; 80048; 83735; 85027; 93005; 96372; 96374; 96375; 96376; 97116; 97162; 99218; J7120; A4216; C1781; G0378; G0379; J2405; J3490

== ENCOUNTER → 2019-02-22 11:00 | Outpatient (CLI) | payer MEDICARE, SELFPAY ==
[2018-02-01 18:24] VITALS: BMI 29.5
[2019-02-22 11:05] LABS: Bacteria 0 SEEN /hpf (None Seen); Mucous, Urine 0 SEEN /hpf (<or=2+); Red Blood Cells-Urine 0 SEEN /hpf (0-5); Squamous Epithelial Cells - UA 0 SEEN /hpf (0-5); White Blood Cells 0 SEEN /hpf (0-5)
[2019-02-22 12:31] LABS: Absolute Lymphocyte Count 1.76 X10^3/uL (0.83-4.51); Absolute Neutrophil Count 3.5 X10^3/uL (2.0-7.7); Basophil# 0.08 X10^3/uL; Basophil% 1.3 % (0-1); Eosinophils% 1.7 % (0-5); Hematocrit 46.6 % (40-54); Hemoglobin 15.4 g/dL (13.0-16.5); Lymphocyte # 1.76 X10^3/ul (4.0); Lymphocyte % 29.3 % (19-41); Mean Corpuscular Hgb 33.3 pg (27.0-32.0); Mean Corpuscular Volume 100.9 fL (80-94); Mean Platelet Vol. 10.3 fl (6.2-12.0); Monocyte# 0.59 X10^3/uL; Monocyte% 9.8 % (0-10); NRBC Flagged by Analyzer 0 % (0-5); Neutrophil # 3.46 X10^3/uL (2.7-7.7); Neutrophil % 57.6 % (47-70); Platelet Count 188 K/mm3 (150-450); RBC Distribution Width CV 11.9 % (11.6-14.6); RBC Distribution Width SD 44.3 fl (35.1-43.9); Red Blood Count 4.62 M/mm3 (4.6-6.2)
[2019-02-22 12:53] LABS: Hemoglobin A1c 5.7 % (4.2-6.3)
[2019-02-22 13:23] LABS: ALB/GLOB Ratio 1.1 RATIO (0.9-2.4); AST(SGOT) 18 U/L (15-37); Alanine Aminotransfer ALT/SGPT 27 U/L (16-61); Albumin, Serum 3.6 g/dL (3.2-5.0); Alkaline Phosphatase 91 U/L (45-117); Anion Gap 10 (5-15); BUN 28 mg/dL (7-18); BUN/Creat Ratio 23.3 RATIO (10-20); Calcium,Total 8.6 mg/dL (8.5-10.1); Chloride 109 mmol/L (98-107); EST Glomerular Filtration Rate 62 mL/min (>60); Est Glom Filt Rate - Afr Amer 75 mL/min (>60); Globulin 3.4 g/dL (2.2-4.2); Glucose 116 mg/dL (74-106); Magnesium 2.2 mg/dL (1.6-2.6); Potassium 3.9 mmol/L (3.5-5.1); Sodium Level 143 mmol/L (136-145); T4 Free Direct 1.06 ng/dL (0.76-1.46); Thyroid Stim Hormone (TSH) 2.69 uIU/mL (0.358-3.74)
[2019-02-22 14:14] LABS: Color, Urine Yellow (Yellow); Glucose, Dipstick Normal (Normal); Ketone-Dipstick Negative (Negative); Leukocyte Esterase-Dipstick Negative /ul (Negative); Nitrite-Dipstick Negative (Negative); Occult Blood-Urine Negative /ul (Negative); Protein-Dipstick Negative (Negative); Urine Bilirubin Dipstick Negative (Negative); Urine Clarity Sl. Cloudy (Clear); Urine Urobilinogen Normal (Normal)
== END ==
PROVIDERS: Family Provider Family Medicine; PCP Family Medicine; Visit Provider Family Medicine
DX: I10 Essential (primary) hypertension (principal); R73.09 Other abnormal glucose; E01.0 Iodine-deficiency related diffuse (endemic) goiter
CPT/HCPCS: 36415; 80053; 81001; 83036; 83735; 84439; 84443; 85025

== ENCOUNTER → 2019-02-25 11:05 | Outpatient (CLI) | payer MEDICARE, SELFPAY ==
[2018-02-01 18:24] VITALS: BMI 29.5
[2019-02-25 12:52] LABS: AST(SGOT) 19 U/L (15-37); Alanine Aminotransfer ALT/SGPT 23 U/L (16-61); Albumin, Serum 3.6 g/dL (3.2-5.0); Alkaline Phosphatase 89 U/L (45-117); Bilirubin, Direct 0.27 mg/dL (0.00-0.30); Globulin 3.3 g/dL (2.2-4.2); Protein, Total 6.9 g/dL (6.4-8.2)
[2019-02-25 12:53] LABS: Vitamin B12 206 pg/mL (211-911)
== END ==
PROVIDERS: Family Provider Family Medicine; PCP Family Medicine; Visit Provider Family Medicine
DX: D75.89 Other specified diseases of blood and blood-forming organs (principal); E80.6 Other disorders of bilirubin metabolism
CPT/HCPCS: 36415; 80076; 82607; 82746

== ENCOUNTER → 2019-03-01 13:11 | Outpatient (CLI) | payer MEDICARE, SELFPAY ==
[2018-02-01 18:24] VITALS: BMI 29.5
--- NOTE | 2019-03-01 13:15 | US_ITS ---
STUDY: THYROID ULTRASOUND REASON FOR EXAM: Male, 83 years old. Thyromegaly TECHNIQUE: Ultrasound evaluation of the thyroid was performed with real-time and static koch-scale imaging. COMPARISON: None. FINDINGS: RIGHT LOBE: The right lobe of the thyroid gland measures 4.3 x 1.5 x 1.2 cm. There is a homogeneous echotexture. There are 3 hypoechoic well-defined nodules of the right thyroid lobe, one located in the upper pole measuring 5 x 4 x 4 mm, the second located in the midpole measuring 3 x 3 x 2 mm, and the third in the lower pole measuring 4 x 4 by 3 mm. There is minimal perinodular vascularity of these nodules. LEFT LOBE: The left lobe of the thyroid gland measures 4.0 x 1.7 x 1.7 cm. There is a homogeneous echotexture. There is a complex cystic nodule of the mid pole measuring 1.6 x 1.6 x 1.1 cm. ISTHMUS: The isthmus measures 6 mm . The regional lymph nodes are normal. US/Thyroid IMPRESSION: The left and right thyroid lobes are within normal limits in size. Bilateral thyroidal nodules as detailed above. Electronically Signed: Jama Herring MD at 16:58 EST , Service support ,
== END ==
PROVIDERS: Family Provider Family Medicine; PCP Family Medicine; Referring Provider Family Medicine; Visit Provider Family Medicine
DX: E01.0 Iodine-deficiency related diffuse (endemic) goiter (principal)
CPT/HCPCS: 76536

== ENCOUNTER → 2019-03-29 10:13 | Outpatient (CLI) | payer MEDICARE, SELFPAY ==
[2019-03-29 08:56] VITALS: BMI 29.5
--- NOTE | 2019-03-29 09:00 | ASPSI_PTH ---
PATIENT: ALLISON SULTANA LOC: [facility] #:[id number] AGE/SX: 89/M ROOM: RE03/29/[address]: Dr. Reed Wilkins MD : 1935 BED: DIS: SPEC #: [id number] RECD: 03/29/19 10:07 STATUS: ILAN JORJE #: [id number] MARTÍNEZ: 03/29/19 09:[address]: Reed Wilkins DEPT: CYTOLOGY RECD BY: Laurent Bobo ENTERED: 03/29/19 11:15 SP TYPE: ANDREW HERNANDEZ DR: Dr. Tariq Alegre MD Tissues: Thyroid gland, NOS Procedures: Surgery Specimen Level IV Cytospin Fluid Cytology Other HEADER OPERATION: Ultrasound guided fine needle aspiration, left thyroid PRE-OP DIAGNOSIS: Multinodular goiter, E04.2 TISSUE SUBMITTED: Fine needle aspiration, left thyroid DIAGNOSIS CYTOLOGY Left thyroid nodule, ultrasound-guided FNA (smears): Consistent with benign colloid nodule. Adequate for evaluation. SJ:rg 03/29/19 COMMENT Immediate cytologic evaluation to determine adequacy is not applicable. Correlation with clinical, radiologic findings and appropriate follow up are necessary. CYTOLOGY STUDY Slides are reviewed. CYTOLOGY GROSS Received are 12 smears labeled with the patient's name and designated per the requisition as FNA left thyroid. Submitted for staining. / cc 03/29/19 TC:5 CPT: 45349
== END ==
PROVIDERS: Family Provider Family Medicine; PCP Family Medicine; Referring Provider Surgery; Visit Provider Surgery
DX: E04.2 Nontoxic multinodular goiter (principal)
CPT/HCPCS: 88108; 88161; 88305

== ENCOUNTER → 2019-05-03 10:40 | Outpatient (CLI) | payer MEDICARE, SELFPAY ==
[2019-03-29 08:56] VITALS: BMI 29.5
[2019-05-03 12:50] LABS: Vitamin B12 707 pg/mL (211-911)
== END ==
PROVIDERS: Family Provider Family Medicine; PCP Family Medicine; Referring Provider Family Medicine; Visit Provider Family Medicine
DX: E53.8 Deficiency of other specified B group vitamins (principal)
CPT/HCPCS: 36415; 82607

== ENCOUNTER → 2019-08-29 10:15 | Outpatient (CLI) | payer MEDICARE, SELFPAY ==
[2019-03-29 08:56] VITALS: BMI 29.5
[2019-08-29 12:12] LABS: Absolute Lymphocyte Count 1.95 X10^3/uL (0.83-4.51); Absolute Neutrophil Count 3.4 X10^3/uL (2.0-7.7); Basophil# 0.09 X10^3/uL; Basophil% 1.4 % (0-1); Eosinophil# 0.14 X10^3/uL; Eosinophils% 2.2 % (0-5); Hematocrit 44.1 % (40-54); Hemoglobin 13.9 g/dL (13.0-16.5); Lymphocyte # 1.95 X10^3/ul (4.0); Lymphocyte % 30.6 % (19-41); Mean Corp Hgb Conc 31.5 g/dL (32-36); Mean Corpuscular Hgb 32.2 pg (27.0-32.0); Mean Corpuscular Volume 102.1 fL (80-94); Mean Platelet Vol. 9.7 fl (6.2-12.0); Monocyte# 0.79 X10^3/uL; Monocyte% 12.4 % (0-10); NRBC Flagged by Analyzer 0 % (0-5); Neutrophil # 3.37 X10^3/uL (2.7-7.7); Neutrophil % 52.8 % (47-70); Platelet Count 184 K/mm3 (150-450); RBC Distribution Width CV 12.6 % (11.6-14.6); RBC Distribution Width SD 47.2 fl (35.1-43.9); Red Blood Count 4.32 M/mm3 (4.6-6.2); White Blood Count 6.4 K/mm3 (4.4-11.0)
[2019-08-29 12:24] LABS: Vitamin B12 724 pg/mL (211-911)
[2019-08-29 12:33] LABS: ALB/GLOB Ratio 1.1 RATIO (0.9-2.4); AST(SGOT) 14 U/L (15-37); Alanine Aminotransfer ALT/SGPT 24 U/L (16-61); Albumin, Serum 3.6 g/dL (3.2-5.0); Alkaline Phosphatase 85 U/L (45-117); Anion Gap 5 (5-15); BUN 24 mg/dL (7-18); BUN/Creat Ratio 22.6 RATIO (10-20); Calcium,Total 8.7 mg/dL (8.5-10.1); Chloride 107 mmol/L (98-107); Creatinine, Serum 1.06 mg/dL (0.70-1.30); EST Glomerular Filtration Rate 71 mL/min (>60); Est Glom Filt Rate - Afr Amer 86 mL/min (>60); Globulin 3.3 g/dL (2.2-4.2); Glucose 78 mg/dL (74-106); Potassium 4.2 mmol/L (3.5-5.1); Protein, Total 6.9 g/dL (6.4-8.2); Sodium Level 140 mmol/L (136-145)
== END ==
PROVIDERS: PCP Family Medicine; Visit Provider Family Medicine
DX: D75.89 Other specified diseases of blood and blood-forming organs (principal); I10 Essential (primary) hypertension; R73.02 Impaired glucose tolerance (oral)
CPT/HCPCS: 36415; 80053; 82607; 82746; 83036; 85025

== ENCOUNTER → 2020-03-17 09:41 | Outpatient (CLI) | payer MEDICARE, SELFPAY ==
[2019-03-29 08:56] VITALS: BMI 29.5
--- NOTE | 2020-03-17 09:52 | ART_ITS ---
Reason For Study: Decreased pedal pulses Procedure A bilateral lower extremity continuous wave Doppler with analog waveform analysis,segmental pressures,and ankle brachial indexes with exercise. Left Segmental Pressures Left brachial= 130mmHg. Left posterior tibial artery = 170mmHg. Left dorsalis pedis artery = 163mmHg. The left dorsalis pedis waveforms are triphasic. The left posterior tibial artery waveforms are triphasic. Right Segmental Pressures Right brachial= 124mmHg. Right posterior tibial artery = 164mmHg. Right dorsalis pedis artery = 161mmHg. The right dorsalis pedis waveforms are triphasic. The right posterior tibial artery waveforms are triphasic. Indices The right ankle brachial index by the dorsalis pedis is 1.24. The right ankle brachial index by the posterior tibial artery is 1.26. The right digital-brachial index is 1.41. The left ankle brachial index by the dorsalis pedis is 1.25. The left ankle brachial index by the posterior tibial artery is 1.31. The left digital-brachial index is 1.45. Interpretation Summary Triphasic Doppler waveforms are noted at ankle level bilaterally. Resting ankle-brachial indices are normal bilaterally. The patient was ambulated on a treadmill for 5 minutes at a 5% grade at 1.5 MPH, following which ankle pressures augmented bilaterally, a normal physiological response. There is no evidence of significant arterial occlusive disease in the lower extremities bilaterally. Ordering Physician: Tariq Alegre Referring Physician: Tariq Alegre Performed By: Sara Zhu RVT
== END ==
PROVIDERS: PCP Family Medicine; Referring Provider Family Medicine; Visit Provider Family Medicine
DX: R09.89 Other specified symptoms and signs involving the circulatory and respiratory systems (principal)
CPT/HCPCS: 93924

== ENCOUNTER → 2020-09-11 07:19 | Outpatient (CLI) | payer MEDICARE, SELFPAY ==
[2019-03-29 08:56] VITALS: BMI 29.5
--- NOTE | 2020-09-11 07:37 | US_ITS ---
STUDY: THYROID ULTRASOUND REASON FOR EXAM: Male, 84 years old. MULTIPLE THYROID NODULES TECHNIQUE: Ultrasound evaluation of the thyroid was performed with real-time and static koch-scale imaging. COMPARISON: 03/01/2019 FINDINGS: RIGHT LOBE: The right lobe of the thyroid gland measures 3.9 x 1.0 x 1.7 cm. There is a homogeneous echotexture. Stable hypoechoic well-defined nodules of the right thyroid lobe, one located in the upper pole measuring 5 x 4 x 4 mm, the second located in the midpole measuring 3 x 3 x 2 mm, and the third in the lower pole measuring 4 x 4 by 3 mm. There is minimal lisbet nodular vascularity of these nodules. LEFT LOBE: The left lobe of the thyroid gland measures 4.2 x 1.7 x 2.3 cm. There is a homogeneous echotexture. There is a stable solid/cystic 1.7 x 1.6 x 1.4 cm nodule. ISTHMUS: The isthmus measures 4 mm. The regional lymph nodes are normal. Incidental note is made of a hypoechoic lesion in the right side of the neck, likely lymph node measuring 1 x 1 x 0.7 cm. US/Thyroid IMPRESSION: Stable homogeneous thyroid gland with multiple bilateral nodules unchanged from the previous study. Yearly follow-up recommended to assure stability No new suspicious mass or nodule Subcentimeter likely physiologic lymph node in the right side of the neck Electronically Signed: Kobe Rodrigues MD at 9:09 EDT , Service support ,
== END ==
PROVIDERS: PCP Family Medicine; Referring Provider Family Medicine; Visit Provider Family Medicine
DX: E04.2 Nontoxic multinodular goiter (principal)
CPT/HCPCS: 76536

== ENCOUNTER 2020-12-12 13:38 | Emergency (ER) | payer MEDICARE, SELFPAY ==
[2020-12-12 13:39] VITALS: BP 140/87; PULSE 81; RESP 15; TEMP 36.8; O2SAT 96; BMI 29.9
[2020-12-12 13:49] VITALS: BP 140/87; PULSE 79; RESP 19; O2SAT 95
--- NOTE | 2020-12-12 14:06 | EDS_ITS ---
HPI History of Present Illness Chief Complaint: Allergic Reaction Informant: patient and EMS Narrative Narrative: 85-year-old male states that he was in his yard when he received multiple stings from yellow jackets to his face hands and arms. He did not take any home medication. He denies any shortness of breath lip swelling difficulty breathing or swallowing. [facility] Medical History (Updated 12/12/20 @ 14:[address] Reed Rubio DO) Diverticulitis (~01/2018) History of renal calculi Hypertension Multinodular goiter Recurrent ventral incisional hernia Home Medications amlodipine 10 mg PO DAILY 12/12/20 [History Last Taken Unknown] Allergy/AdvReac Type Severity Reaction Status Date / Time latex AdvReac Mild Other Verified 04/03/19 08:06 Family History Sister Diabetes Heart disease Brother Heart disease Father Heart disease Surgical History History of hernia repair (~01/2018) History of lithotripsy Hx of biopsy S/P left inguinal herniorrhaphy Status post cholecystectomy Social History Smoking Status: Never smoker alcohol intake: never substance use type: does not use ROS ROS ED Constitutional Constitutional ED: Denies chills or weight loss Eyes Eyes: Denies change in vision or diplopia ENT ENT ED: Denies ear pain, rhinorrhea or sore throat Cardiovascular Cardiovascular: Denies chest pain, orthopnea, palpitations or racing heartbeat Respiratory/Chest Respiratory/Chest: Denies cough, dyspnea or orthopnea Gastrointestinal Gastrointestinal: Denies abdominal pain, diarrhea, nausea or vomiting Genitourinary Genitourinary ED: Denies dysuria, hematuria or urinary frequency Musculoskeletal Musculoskeletal: Denies arthralgias or myalgias Integumentary Reports other Details: Multiple bee stings ; Denies abscess or rash Neurologic Neurologic: Denies headache(s) or weakness Psychiatric Psychiatric: Denies anxiety, depression, suicidal ideation or suicidal thoughts Endocrine Endocrinology: Denies polydipsia, polyphagia or polyuria Allergic/Immunologic Allergic/Immunologic ED: Denies mouth swelling, tongue swelling or urticaria EXAM Physical Exam Const Vital Signs: 12/12/20 13:39 12/12/20 13:49 Temperature 98.2 F Temperature Source Temporal Pulse Rate 81 79 Respiratory Rate 15 19 H Blood Pressure 140/87 H 140/87 H Blood Pressure Mean 104 104 Pulse Ox 96 95 Oxygen Delivery Method Room Air Room Air Positive well nourished and well developed General Appearance ED: well developed HEENT Reports normocephalic, head/scalp atraumatic and moist mucous membranes HEENT Narrative: No swelling of the lips or tongue or uvula Eyes PERRL and EOMs intact bilaterally Neck no lymphadenopathy, supple and no JVD Resp normal respiratory effort and clear to auscultation bilaterally Cardio regular rate, regular rhythm and no murmurs GI normal to inspection, nondistended, normoactive bowel sounds and non-tender Palpation: soft Back/Spine no CVA tenderness and normal ROM Extremity normal to inspection General Extremety ED: Negative for edema General Extremity: Negative for edema Neuro oriented x3 and CN's II-XII intact bilaterally Sensorium / Orientation: alert Motor Exam: strength 5/5 throughout Psych mental status grossly normal Mood & Affect: Negative for depressed or tearful Skin Skin Narrative: The patient has multiple bee stings to his face hands and arms. These all appear to be local reactions without evidence of hives General Skin Exam: elasticity normal MDM MDM MDM Narrative Medical decision making narrative: I do not see any stingers in any of the wounds. Patient received Benadryl Pepcid and Solu-Medrol. He was observed. Patient will be discharged home with instructions for Benadryl and Pepcid. Return if worsening or concerns Discharge Plan Triage Chief Complaint: Allergic Reaction ED Provider: Reed Rubio Dx/Rx/DC Orders Clinical Impression: Local reaction to bee sting Instructions: ED Insect Sting, Local Reaction Prescriptions: No Action amlodipine 5 MG tablet 10 mg PO DAILY RF: 0 Primary Care Provider: Tariq Alegre Referrals: Tariq Alegre MD [Primary Care Provider] - As Needed Activity Restrictions/Additional Instructions: I would recommend continued Benadryl 1 tablet every 6-8 hours. Ice to the swollen areas. Disposition Disposition: Home, Self Care
[2020-12-12] MEDS: Famotidine 20 MG Tablet 40 MG PO (14:07)
[2020-12-12] MEDS: DiphenhydrAMINE 25 MG Capsule PO (14:07)
[2020-12-12] MEDS: MethylPREDNISolone 125 MG/2 ML Vial IV (14:07)
[2020-12-12 15:47] VITALS: BP 135/77; PULSE 74; RESP 16; O2SAT 97
== END 2020-12-12 15:48 | disposition home or self-care (01) ==
PROVIDERS: Emergency Provider Emergency Medicine; PCP Family Medicine
DX: T63.461A Toxic effect of venom of wasps, accidental (unintentional), initial encounter (principal); Y92.9 Unspecified place or not applicable; E04.2 Nontoxic multinodular goiter; I10 Essential (primary) hypertension; Z79.899 Other long term (current) drug therapy; Z87.442 Personal history of urinary calculi
CPT/HCPCS: 96374; 99284

== ENCOUNTER → 2021-09-07 | Outpatient (CLI) | payer MEDICARE, SELFPAY ==
[2021-09-07 09:03] LABS: Bacteria 0 SEEN /hpf (None Seen); Mucous, Urine 0 SEEN /hpf (<or=2+); Red Blood Cells-Urine 0 SEEN /hpf (0-5); Squamous Epithelial Cells - UA 0 SEEN /hpf (0-5); White Blood Cells 0 SEEN /hpf (0-5)
[2021-09-07 09:57] LABS: Absolute Lymphocyte Count 1.85 X10^3/uL (0.83-4.51); Absolute Neutrophil Count 3.3 X10^3/uL (2.0-7.7); Basophil# 0.07 X10^3/uL; Basophil% 1.1 % (0-1); Eosinophil# 0.18 X10^3/uL; Eosinophils% 2.9 % (0-5); Hemoglobin 14.9 g/dL (13.0-16.5); Lymphocyte # 1.85 X10^3/ul (0.83-4.51); Lymphocyte % 29.7 % (19-41); Mean Corp Hgb Conc 33.1 g/dL (32-36); Mean Corpuscular Hgb 33.3 pg (27.0-32.0); Mean Corpuscular Volume 100.4 fL (80-94); Mean Platelet Vol. 10.1 fl (6.2-12.0); Monocyte# 0.77 X10^3/uL; Monocyte% 12.4 % (0-10); NRBC Flagged by Analyzer 0 % (0-5); Neutrophil # 3.34 X10^3/uL (2.7-7.7); Neutrophil % 53.6 % (47-70); Platelet Count 184 K/mm3 (150-450); RBC Distribution Width CV 12.3 % (11.6-14.6); RBC Distribution Width SD 46.2 fl (35.1-43.9); Red Blood Count 4.48 M/mm3 (4.6-6.2); White Blood Count 6.2 K/mm3 (4.4-11.0)
[2021-09-07 10:14] LABS: Color, Urine Yellow (Yellow); Glucose, Dipstick Normal (Normal); Ketone-Dipstick Negative (Negative); Leukocyte Esterase-Dipstick Negative /ul (Negative); Nitrite-Dipstick Negative (Negative); Occult Blood-Urine Negative /ul (Negative); Protein-Dipstick Negative (Negative); Specific Gravity, Urine 1.025 (1.002-1.030); Urine Bilirubin Dipstick Negative (Negative); Urine Clarity Clear (Clear); Urine Urobilinogen Normal (Normal)
[2021-09-07 10:14] LABS: Vitamin B12 684 pg/mL (211-911)
[2021-09-07 10:17] LABS: Hemoglobin A1c 5.7 % (3.8-5.6)
[2021-09-07 10:19] LABS: AST(SGOT) 14 U/L (15-37); Alanine Aminotransfer ALT/SGPT 23 U/L (16-61); Albumin, Serum 3.7 g/dL (3.2-5.0); Alkaline Phosphatase 90 U/L (45-117); Anion Gap 4 (5-15); BUN 20 mg/dL (7-18); BUN/Creat Ratio 16.9 RATIO (10-20); Chloride 111 mmol/L (98-107); Creatinine, Serum 1.18 mg/dL (0.70-1.30); EST Glomerular Filtration Rate 63 mL/min (>60); Est Glom Filt Rate - Afr Amer 76 mL/min (>60); Globulin 3.6 g/dL (2.2-4.2); Glucose 71 mg/dL (74-106); Potassium 4.3 mmol/L (3.5-5.1); Protein, Total 7.3 g/dL (6.4-8.2); Sodium Level 143 mmol/L (136-145)
== END | disposition home or self-care (01) ==
LOC: MFPLAB 09:01
PROVIDERS: PCP Family Medicine; Visit Provider Family Medicine
DX: I10 Essential (primary) hypertension (principal); E53.8 Deficiency of other specified B group vitamins; R73.02 Impaired glucose tolerance (oral)
CPT/HCPCS: 80053; 81001; 82607; 82746; 83036; 85025

== ENCOUNTER → 2021-09-10 | Outpatient (CLI) | payer MEDICARE, SELFPAY ==
--- NOTE | 2021-09-10 11:58 | US_ITS ---
STUDY: THYROID ULTRASOUND REASON FOR EXAM: Male, 85 years old. MULTIPLE THYROID NODULES TECHNIQUE: Ultrasound evaluation of the thyroid was performed with real-time and static koch-scale imaging. COMPARISON: Comparison is made with prior study dated 09/11/2020. FINDINGS: RIGHT LOBE: The right lobe of the thyroid gland measures 4.1 cm x 1.4 cm x 1.1 cm. There is a homogeneous echotexture. 3 subcentimeters hypoechoic well-defined nodes are seen in the right lobe. A 5 mm x 4 mm x 4 mm nodule is seen in the upper pole. There is also evidence of a 3 mm x 3 mm x 4 mm hypoechoic solid nodule in the lower pole as well as a 4 mm x 4 mm x 5 mm nodule in the lower pole. LEFT LOBE: The left lobe of the thyroid gland measures 3.8 cm x 1.6 x 1.8 cm. There is a homogeneous echotexture. There is a 1.7 cm x 1.3 cm x 1.2 cm solid/cystic nodule in the midpole of the left lobe. This is unchanged. ISTHMUS: The isthmus measures 4 mm. There is a 1 cm x 1 cm x 0.7 cm lymph node in the right side of the neck. US/Thyroid IMPRESSION: Stable sonogram of the thyroid with bilateral thyroid nodules as described. Electronically Signed: Cornelius Evans MD at 13:44 EDT ,
== END | disposition home or self-care (01) ==
PROVIDERS: PCP Family Medicine; Visit Provider Family Medicine
DX: E04.2 Nontoxic multinodular goiter (principal)
CPT/HCPCS: 76536

== ENCOUNTER → 2022-03-15 | Outpatient (CLI) | payer MEDICARE, SELFPAY ==
--- NOTE | 2022-03-15 09:17 | RAD_ITS ---
STUDY: X-RAY - RIGHT FOOT CLINICAL: Male, 86 years old. Pain. TECHNIQUE: 3 view(s) of the foot. COMPARISON: None. FINDINGS: Osteopenia. Mild arthrosis of the tibiotalar joint. Mild arthrosis of the subtalar joint. Inferior calcaneal spur. Mild arthrosis of the midfoot. Mild arthrosis at the TMT joints. Moderate arthrosis of the MTP and IP joints with hammertoe deformities. Normal soft tissues. RAD/Foot min 3 Views IMPRESSION: Osteopenia with osteoarthritic changes as described. No acute abnormality or erosive changes. Electronically Signed: Luis Cramer, at 10:18 EST ,
== END | disposition home or self-care (01) ==
PROVIDERS: PCP Family Medicine; Referring Provider Family Medicine; Visit Provider Family Medicine
DX: M79.674 Pain in right toe(s) (principal)
CPT/HCPCS: 73630

== ENCOUNTER → 2023-03-22 | Outpatient (CLI) | payer MEDICARE, OTHER, SELFPAY ==
[2023-03-22 10:53] LABS: Hemoglobin A1c 5.8 % (3.8-5.6)
[2023-03-22 10:56] LABS: AST(SGOT) 20 U/L (15-37); Alanine Aminotransfer ALT/SGPT 24 U/L (16-61); Albumin, Serum 3.7 g/dL (3.2-5.0); Alkaline Phosphatase 97 U/L (45-117); Anion Gap 3 (5-15); BUN 18 mg/dL (7-18); BUN/Creat Ratio 15.9 RATIO (10-20); Calcium,Total 8.6 mg/dL (8.5-10.1); Chloride 111 mmol/L (98-107); Creatinine, Serum 1.13 mg/dL (0.70-1.30); EST Glomerular Filtration Rate 66 mL/min (>60); Est Glom Filt Rate - Afr Amer 79 mL/min (>60); Globulin 3.6 g/dL (2.2-4.2); Glucose 80 mg/dL (74-106); Protein, Total 7.3 g/dL (6.4-8.2); Sodium Level 141 mmol/L (136-145)
== END | disposition home or self-care (01) ==
LOC: MFPLAB 09:03
PROVIDERS: PCP Family Medicine; Visit Provider Family Medicine
DX: R73.02 Impaired glucose tolerance (oral) (principal)
CPT/HCPCS: 36415; 80053; 83036

== ENCOUNTER → 2023-09-20 | Outpatient (CLI) | payer MEDICARE, OTHER, SELFPAY ==
[2023-09-20 12:33] LABS: Absolute Lymphocyte Count 1.85 X10^3/uL (0.83-4.51); Absolute Neutrophil Count 2.8 X10^3/uL (2.0-7.7); Basophil# 0.08 X10^3/uL; Basophil% 1.3 % (0-1); Eosinophil# 0.26 X10^3/uL; Eosinophils% 4.4 % (0-5); Hematocrit 44.3 % (40-54); Hemoglobin 14.4 g/dL (13.0-16.5); Lymphocyte # 1.85 X10^3/ul (0.83-4.51); Lymphocyte % 31.1 % (19-41); Mean Corp Hgb Conc 32.5 g/dL (32-36); Mean Corpuscular Hgb 32.5 pg (27.0-32.0); Mean Platelet Vol. 10.4 fl (6.2-12.0); Monocyte# 0.95 X10^3/uL; NRBC Flagged by Analyzer 0 % (0-5); Neutrophil # 2.76 X10^3/uL (2.7-7.7); Neutrophil % 46.5 % (47-70); Platelet Count 193 K/mm3 (150-450); RBC Distribution Width CV 12.5 % (11.6-14.6); RBC Distribution Width SD 46.4 fl (35.1-43.9); Red Blood Count 4.43 M/mm3 (4.6-6.2); White Blood Count 5.9 K/mm3 (4.4-11.0)
[2023-09-20 12:39] LABS: ALB/GLOB Ratio 0.9 RATIO (0.9-2.4); AST(SGOT) 20 U/L (15-37); Alanine Aminotransfer ALT/SGPT 24 U/L (16-61); Albumin, Serum 3.4 g/dL (3.2-5.0); Alkaline Phosphatase 85 U/L (45-117); Anion Gap 7 (5-15); BUN 22 mg/dL (7-18); Calcium,Total 8.7 mg/dL (8.5-10.1); Chloride 109 mmol/L (98-107); Cholesterol 133 mg/dL (200); EST Glomerular Filtration Rate 68 mL/min (>60); Est Glom Filt Rate - Afr Amer 82 mL/min (>60); Globulin 3.6 g/dL (2.2-4.2); Glucose 99 mg/dL (74-106); High Density Lipoprotein 40 mg/dL; Potassium 3.9 mmol/L (3.5-5.1); Sodium Level 140 mmol/L (136-145); Thyroid Stim Hormone (TSH) 3.64 uIU/mL (0.358-3.74); Triglycerides 100 mg/dL; Very Low Density Lipoprotein 20 mg/dL (5-40)
[2023-09-20 15:03] LABS: Hemoglobin A1c 5.7 % (3.8-5.6)
[2023-09-20 17:28] LABS: Vitamin B12 800 pg/mL (211-911)
== END | disposition home or self-care (01) ==
LOC: MFPLAB 09:54
PROVIDERS: PCP Family Medicine; Visit Provider Family Medicine
DX: I10 Essential (primary) hypertension (principal); R73.02 Impaired glucose tolerance (oral); E53.8 Deficiency of other specified B group vitamins
CPT/HCPCS: 36415; 80053; 80061; 82607; 83036; 84443; 85025

== ENCOUNTER → 2023-10-05 | Outpatient (CLI) | payer MEDICARE, OTHER, SELFPAY ==
--- NOTE | 2023-10-05 16:44 | US_ITS ---
STUDY: THYROID ULTRASOUND REASON FOR EXAM: Male, 87 years old. Follow up for thyroid nodules. TECHNIQUE: Ultrasound evaluation of the thyroid was performed with real-time and static koch-scale imaging. COMPARISON: Comparison is made with prior study dated September 10, 2021. FINDINGS: RIGHT LOBE: The right lobe of the thyroid gland measures 4.4 cm x 1.6 cm x 0.8 cm. There is a heterogeneous echotexture. Once again, 3 subcentimeter hypoechoic nodules are seen. The largest measures 1 cm x 0.8 cm x 0.4 cm. LEFT LOBE: The left lobe of the thyroid gland measures 3.8 cm x 1.4 cm x 2 cm. There is a heterogeneous echotexture. There is a stable 1.4 cm x 1.1 cm x 1 some are solid/cystic nodule in the midpole of the left lobe this is unchanged. ISTHMUS: The isthmus measures 4 mm. The regional lymph nodes are normal. US/Thyroid IMPRESSION: Heterogeneous echotexture of the thyroid with stable bilateral thyroid nodules the largest in the left lobe. Electronically Signed: Cornelius Evans MD at 14:02 EDT ,
== END | disposition home or self-care (01) ==
LOC: US 16:43
PROVIDERS: PCP Family Medicine; Referring Provider Family Medicine; Visit Provider Family Medicine
DX: E04.2 Nontoxic multinodular goiter (principal)
CPT/HCPCS: 76536

== ENCOUNTER → 2024-10-11 | Outpatient (CLI) | payer MEDICARE, OTHER, SELFPAY ==
[2024-10-11 10:57] LABS: Red Blood Cells-Urine 0 SEEN /hpf (0-5); Squamous Epithelial Cells - UA 0 SEEN /hpf (0-5); White Blood Cells 0 SEEN /hpf (0-5)
[2024-10-11 12:25] LABS: Color, Urine Yellow (Yellow); Glucose, Dipstick Normal (Normal); Ketone-Dipstick Negative (Negative); Leukocyte Esterase-Dipstick Negative /ul (Negative); Nitrite-Dipstick Negative (Negative); Occult Blood-Urine Negative /ul (Negative); Protein-Dipstick 15 mg/dl (Negative); Urine Bilirubin Dipstick Negative (Negative); Urine Clarity Clear (Clear); Urine Urobilinogen Normal (Normal)
[2024-10-11 12:35] LABS: Absolute Lymphocyte Count 1.74 X10^3/uL (0.83-4.51); Absolute Neutrophil Count 3.3 X10^3/uL (2.0-7.7); Basophil# 0.09 X10^3/uL; Basophil% 1.4 % (0-1); Eosinophil# 0.17 X10^3/uL; Eosinophils% 2.7 % (0-5); Hematocrit 43.2 % (40-54); Hemoglobin 14.3 g/dL (13.0-16.5); Lymphocyte # 1.74 X10^3/ul (0.83-4.51); Lymphocyte % 27.8 % (19-41); Mean Corp Hgb Conc 33.1 g/dL (32-36); Mean Corpuscular Hgb 33.1 pg (27.0-32.0); Monocyte% 14.4 % (0-10); NRBC Flagged by Analyzer 0 % (0-5); Neutrophil # 3.32 X10^3/uL (2.7-7.7); Neutrophil % 53.2 % (47-70); Platelet Count 200 K/mm3 (150-450); RBC Distribution Width CV 12.3 % (11.6-14.6); RBC Distribution Width SD 45.8 fl (35.1-43.9); Red Blood Count 4.32 M/mm3 (4.6-6.2); White Blood Count 6.3 K/mm3 (4.4-11.0)
[2024-10-11 12:41] LABS: Bacteria RARE /hpf (None Seen); Mucous, Urine 1+ /hpf (<or=2+)
[2024-10-11 13:04] LABS: ALB/GLOB Ratio 1.5 RATIO (0.9-2.4); AST(SGOT) 23 U/L (<=37); Alanine Aminotransfer ALT/SGPT 18 U/L (<=46); Alkaline Phosphatase 91 U/L (40-129); Anion Gap 11 (5-15); BUN 20 mg/dL (4-19); BUN/Creat Ratio 18.3 RATIO (10-20); Calcium,Total 8.9 mg/dL (7.6-11.0); Carbon Dioxide 23.7 mmol/L (21.0-32.0); Chloride 108 mmol/L (98-108); Creatinine, Serum 1.11 mg/dL (0.70-1.20); EST Glomerular Filtration Rate 65 (>60); Globulin 2.6 g/dL (2.2-4.2); Glucose 67 mg/dL (70-99); Magnesium 2.2 mg/dL (1.5-2.2); Potassium 3.7 mmol/L (3.3-5.1); Protein, Total 6.6 g/dL (5.9-8.4); Sodium Level 143 mmol/L (133-145); Total Bilirubin 1.01 mg/dL (0.00-1.30); Vitamin B12 1184 pg/mL (180-914)
[2024-10-11 14:13] LABS: Hemoglobin A1c 5.8 % (<=5.6)
== END | disposition home or self-care (01) ==
PROVIDERS: PCP Family Medicine; Referring Provider Family Medicine; Visit Provider Family Medicine
DX: I10 Essential (primary) hypertension (principal); R73.02 Impaired glucose tolerance (oral); D75.89 Other specified diseases of blood and blood-forming organs
CPT/HCPCS: 36415; 80053; 81001; 82607; 82746; 83036; 83735; 84443; 85025